=== PATIENT | male | born 1990 | race Asian ===

== ENCOUNTER 2018-05-31 15:08 | Emergency (ER) | payer OTHER ==
[2018-05-31] MEDS ORDERED: KETOROLAC 60 MG/2 ML VIAL IVP STA (16:22)
[2018-05-31] MEDS ORDERED: diphenhydrAMINE 25 MG CAPSULE PO STA (16:22)
[2018-05-31] MEDS ORDERED: SODIUM CHLORIDE 0.9% 1,000 ML IV ONE (16:22)
[2018-05-31] MEDS ORDERED: PROCHLORPERAZINE 10 MG/2 ML VIAL IVP STA (16:22)
[2018-05-31] MEDS ORDERED: diphenhydrAMINE INJ 50 MG/ML VIAL IVP STA (16:47)
--- NOTE | 2018-05-31 16:58 | ED Physician Documentation ---
PD HPI HEADACHE - Stated complaint Stated Complaint: SANCHEZ/N/V - Chief complaint Chief Complaint: General - History obtained from History obtained from: Patient, Family - History of Present Illness Timing - onset: Today Timing - onset during: Rest Timing - duration: Hours (1) Timing - details: Gradual onset Pain level max: 8 Pain level now: 5 Location: Global Quality: Throbbing, Aching Associated symptoms: Vomiting, Eye pain (+photophobia). No: Fever, Stiff neck, Nausea, Weakness, Numbness, Syncope, Seizure, Vision changes Improved by: Rest, Dark room Worsened by: Light, Noise Similar symptoms before: Diagnosis (migraines) Recently seen: Not recently seen Review of Systems Ten Systems: 10 systems reviewed and negative Constitutional: denies: Fever, Chills Eyes: reports: Photophobia Throat: denies: Sore throat Respiratory: denies: Cough Skin: denies: Rash Musculoskeletal: denies: Neck pain, Back pain Neurologic: denies: Focal weakness, Numbness, Confused, Altered mental status, Head injury, LOC PD PAST MEDICAL HISTORY - Past Medical History Past Medical History: No - Past Surgical History Past Surgical History: No - Allergies Allergies/Adverse Reactions: Allergies Allergy/AdvReac Type Severity Reaction Status Date / Time mint Allergy Anaphylaxis Verified 05/31/18 15:27 - Social History Does the pt smoke?: No Smoking Status: Never smoker Does the pt drink ETOH?: No Does the pt have substance abuse?: No - Immunizations Immunizations are current?: Yes - POLST Patient has POLST: No PD ED PE NORMAL - Vitals Vital signs reviewed: Yes - General General: Alert and oriented X 3, No acute distress, Well developed/nourished - HEENT HEENT: Atraumatic, PERRL, EOMI, Ears normal, Moist mucous membranes, Pharynx benign - Neck Neck: Supple, no meningeal sign - Cardiac Cardiac: RRR, Strong equal pulses - Respiratory Respiratory: No respiratory distress, Clear bilaterally - Abdomen Abdomen: Soft, Non tender, Non distended - Derm Derm: Warm and dry - Extremities Extremities: No edema - Neuro Neuro: Alert and oriented X 3, 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 Was given IV fluids, Toradol, Compazine and Benadryl. Headache resolved. No evidence of subarachnoid hemorrhage, tumor. We will have him follow-up with his doctor for further care. Patient counseled regarding signs and symptoms for which I believe and urgent re-evaluation would be necessary. Patient with good understanding of and agreement to plan and is comfortable going home at this time This document was made in part using voice recognition software. While efforts are made to proofread this document, sound alike and grammatical errors may occur. No fevers. No evidence of meningitis or encephalitis - Sepsis Event Vital Signs: Vital Signs - 24 hr 05/31/18 05/31/18 15:25 17:46 Temperature 36.6 C Heart Rate 92 73 Respiratory 15 18 Rate Blood Pressure 145/88 H 129/80 O2 Saturation 95 99 Oxygen O2 Source Room air Departure - Departure Disposition: 01 Home, Self Care Clinical Impression: Migraines Qualifiers: Migraine type: unspecified Status migrainosus presence: without status migrainosus Intractability: not intractable Qualified Code(s): G43.909 - Migraine, unspecified, not intractable, without status migrainosus Condition: Good Instructions: ED Headache Migraine Follow-Up: your,doctor as scheduled [Other] [facility] [Provider Group] Comments: Go home and rest today. Do not drive. Follow-up with your doctor for further evaluation and care. You should discuss with your doctor migraine medication for home. Forms: Activity restrictions Discharge Date/Time: 05/31/18 17:49
[2018-05-31 17:47] VITALS: BP 129/80
== END 2018-05-31 17:49 | disposition home or self-care (01) ==
LOC: ED 15:08
DX: G43.909 Migraine, unspecified, not intractable, without status migrainosus (principal)
CPT/HCPCS: 96374; 96375; 99283; J1200

== ENCOUNTER 2019-04-16 13:55 | Outpatient (CLI) | payer OTHER ==
[2019-04-16 15:00] VITALS: BP 100/65
--- NOTE | 2019-04-16 15:00 | SLEEP CARE CONSULTATION ---
Information from patient questionnaire entered by Meche Beasley. I have reviewed and concur with the information entered by Meche Beasley. This document represents the service I personally performed and the decisions made by me, Kaden Guzman MD, [facility]. History of Present Illness Reason for Visit: New patient Chief Complaint: reports: Unrefreshed sleep, Snoring, Excessive daytime sleepiness Duration of Symptoms: 3 YEARS Usual bedtime: 10:30PM Time it takes to fall asleep: Under 5 minutes Snores at night: Yes Observed to quit breathing while asleep: Yes Sleeps alone due to snoring: No Number of times waking at night: 0-1 Reasons for waking at night: reports: Bathroom Toss, Turn, or Twitch while sleeping: Yes Recalls having dreams: Yes Usually gets out of bed at: 5:30am Feels refreshed in the morning: Yes Morning headache: Yes Sleepy or fatigued during the day: Yes Ever fallen asleep while driving: Yes Takes day naps: No Dreams during day naps: No Prior sleep studies: No Additional HPI information: I had the pleasure of seeing Mr. Dimas today regarding the possibility of him having a sleep disorder. As you know, he is a 29 year old gentleman who complains of loud snore, observed apneas, and excessive daytime sleepiness. The patient tells me that he normally goes to bed around 10:30 pm, and it takes him approximately just a few minutes to fall asleep. His can still sleep in the same bed. He can recall waking up on the average of 0 times during the night. He has never awakened occasionally because of his own snoring, choking, or having to gasp for air. In the morning he usually gets up out of the bed around 5:30 a.m. (7 am) not feeling refreshed nor rested. He usually has a morning headache lasting several hours. During the day he complains of feeling sleepy and fatigued. His score on [place] Sleepiness Scale is 17 out of 24. He has fallen asleep while driving and has gone out of the josiane. He has fallen asleep at work as well. He usually does not take naps during the day. He reports having impaired concentration. - Parasomnia Symptoms Ever been unable to move upon waking from sleep: No Walks in sleep: Yes Talks in sleep: No Ever acted out dreams in sleep: No Ever felt weak in the knees when startled or emotional: Yes Bothered by creepy, crawly, restless sensations in legs: No Problems with memory or concentration: Yes Subjective Initial [place] Sleepiness Scale score: 17 Past Medical History Past Medical History: reports: Other (migraine headache; s/p septoplasty) Social History The patient's occupation is a AM. Patient is and lives in . Have you smoked in the past 12 months: No Alcohol use: No Caffeine use: Yes Caffeine amount and frequency: 2-3 per week Family History Family history of sleep disordered breathing: Yes Family Hx Sleep Apnea: Father: Snoring, Grandparent: Snoring Allergies and Home Medications Known drug allergies: No Home medication list reviewed: Yes Review of Systems Weight gain over past 5 years: 50 Cardiovascular: denies: high blood pressure, palpitations, chest pain, irregular heart rate or pulse, leg or foot swelling, have to sleep sitting up, other Respiratory: denies: shortness of breath, wheeze, sputum production, chronic cough, other Gastrointestinal: reports: nausea, vomitting Neurological: reports: headaches Psychiatric: denies: Attention Deficit Hyperactivity, anxiety, depression, mood disorder, claustrophobia, other Ear/Nose/Throat: reports: dry mouth/throat, wisdom teeth removed Endocrine: denies: thyroid disease, history of goiter, sluggishness, too hot or cold, excessive thirst, increased appetite, increased urination, unexplained weakness, other Musculoskeletal: reports: joint pain Immunologic: reports: sneezing, allergies to food or environment Physical Exam Vital signs obtained and entered by: Dr. Guzman Blood Pressure: 100/65 Cuff size: long Heart Rate: 76 O2 Saturation: 98 Height: 5 ft 10 in Weight (kg): 81.647 kg Body Mass Index: 25.8 BMI Classification: Overweight Neck circumference: 15 HEENT: No craniofacial malformation Nostrils: patent to airflow Turbinates: normal Septum: deviated left Mouth and throat: normal Soft palate: normal Hard palate: normal Uvula: normal Uvula visualization: 0% Mallampati Class IV Tongue: normal in size Tonsils: small Chin and jaw: normal size and position Neck: normal w/o lymphadenopathy or thyromegaly Heart: regular rate and rhythm Lungs: clear bilaterally Abdomen: soft, non-tender Extremities: no edema or clubbing Neurologic: intact, no focal deficits Impression and Plan IMPRESSION: 1. Obstructive Sleep Apnea-Hypopnea Syndrome, as suggested by history of loud and irregular snoring, witnessed apneas, and daytime hypersomnolence. Narrow oropharynx is a common predisposing factors for obstructive sleep apnea-hypopnea syndrome. Pathophysiology of sleep-disordered breathing was discussed. I recommend proceeding to polysomnography to confirm the diagnosis and to assess severity. I informed the patient of what the sleep studies involve and after some discussion, he agreed to proceed. Plan: 1. Schedule polysomnography and return in 1 to 2 weeks after the study to discuss result and initiate therapy. 2. Avoid long distance driving or when feeling sleepy. 3. Avoid alcohol, sedative and muscle relaxant around bedtime. I spent 100% of this 15 minute visit face to face with the patient with greater than 50% of this was spent time counseling the patient and coordination of care.
== END 2019-04-16 13:56 | disposition home or self-care (01) ==
LOC: SC 13:55
PROVIDERS: ATTEND Internal Medicine Pulmonary Disease
DX: R06.83 Snoring (principal); R06.81 Apnea, not elsewhere classified; G47.10 Hypersomnia, unspecified
CPT/HCPCS: 99203; 99212

== ENCOUNTER 2019-04-30 19:13 | Outpatient (CLI) | payer OTHER | END 2019-04-30 19:14 | disposition home or self-care (01) | LOC: SC 19:13 | PROVIDERS: ATTEND Internal Medicine Pulmonary Disease | DX: G47.61 Periodic limb movement disorder (principal); G47.63 Sleep related bruxism | CPT/HCPCS: 95810 ==

== ENCOUNTER 2019-06-11 13:52 | Outpatient (CLI) | payer OTHER ==
--- NOTE | 2019-06-11 14:59 | SLEEP CARE CONSULTATION ---
Information from patient questionnaire entered by Meche Beasley. I have reviewed and concur with the information entered by Meche Beasley. This document represents the service I personally performed and the decisions made by me, Kaden Guzman MD, [facility]. History of Present Illness Initial [place] Sleepiness Scale score: 17 Current [place] Sleepiness Scale score: 18 Additional HPI information: HPI: Mr. Dimas returned for follow up of the sleep study he had on 04/30/2019. The polysomnography showed that the quality of the study is good. The patient had normal sleep efficiency. The sleep architecture was normal as well. Respiratory monitoring showed no significant sleep disordered breathing (AHI = 1.1) or hypoxia (sera oxygen saturation of 89%). The patient slept mostly in supine position (supine AHI = 1.2; non-supine = 0.00). Snore was moderate in intensity. There was no significant periodic leg movement of sleep. Cardiac rhythm was normal sinus rhythm without significant arrhythmia. The patient had bruxism. The patient was informed of these findings. I explained to him that the sleep study was normal except for bruxism. Allergies and Home Medications Drug allergies reviewed: Yes Home medication list reviewed: Yes Physical Exam Height: 5 ft 10 in Weight: 180 lb Body Mass Index: 25.8 BMI Classification: Overweight Impression and Plan IMPRESSION: 1. Bruxism. The patient is not aware that he has bruxism. I was recommended to follow up with his dentist. 2. Hypersomnia, due to insufficient sleep on week nights. Presently, he gets about 6.5 hours of sleep on week nights. PLAN: 1. Maintain a regular wake up time and allow 8 hours in bed at night. 2. Follow up with a dentist regarding bruxism. 4. Return to the sleep clinic on as needed basis. I spent 100% of this 20 minute visit face to face with the patient with greater than 50% of this was spent time counseling the patient and coordination of care.
== END 2019-06-11 13:53 | disposition home or self-care (01) ==
LOC: SC 13:52
PROVIDERS: ATTEND Internal Medicine Pulmonary Disease
DX: G47.63 Sleep related bruxism (principal); G47.10 Hypersomnia, unspecified; R06.83 Snoring
CPT/HCPCS: 99212; 99213